=== PATIENT | male | born 1990 | race Caucasian/White ===

== ENCOUNTER → 2019-07-06 | Outpatient (CLI) | payer OTHER ==
--- NOTE | 2019-07-06 14:42 | RADIOLOGY REPORT (SQ) ---
EXAM DESCRIPTION: SKULL 1-3 VIEWS COMPLETED DATE/TIME: 07/06/2019 2:29 pm REASON FOR STUDY: SCREEN FOR MRI - COMPARISON: None. NUMBER OF VIEWS: Two Views. TECHNIQUE: Lay and lateral views of the skull were obtained. LIMITATIONS: None. FINDINGS: SKULL: There is no fracture. The orbits are intact. The sphenoid and maxillary sinuses a re aerated. There is no radiopaque foreign body. OTHER: No other finding. IMPRESSION: No radiopaque foreign body. TECHNICAL DOCUMENTATION: JOB ID: [id number] 2010 [employer]- All Rights Reserved Reading location - IP/workstation name: [email or web address]
--- NOTE | 2019-07-06 16:28 | RADIOLOGY REPORT (SQ) ---
EXAM DESCRIPTION: MRI LUMBAR SPINE WITHOUT COMPLETED DATE/TIME: 07/06/2019 3:03 pm REASON FOR STUDY: LOW BACK PAIN COMPARISON: None. TECHNIQUE: Sagittal and Axial imaging includes T1, T2, STIR and gradient echo sequences. Coronal T2/ HASTE imaging. LIMITATIONS: None. FINDINGS: VISUALIZED UPPER ABDOMEN: No abnormality. SEGMENTATION: There are 5 lumbar-type vertebral bodies. There is no transition anatomy at the lumbos acral junction. ALIGNMENT: Anatomic. VERTEBRAE: Intact. BONE MARROW: Normal. DISC SIGNAL: The L4-5 and L5-S1 intervertebral discs are desiccated. POSTERIOR ELEMENTS: Intact. HARDWARE: None in the spine. CORD AND CONUS: The conus medullaris terminates at the level of L1 and is normal in caliber and signa l intensity. SOFT TISSUES: No abnormality. L1-L2: No spinal or foraminal stenosis. L2-L3: No spinal or foraminal stenosis. L3-L4: No spinal or foraminal stenosis. L4-L5: Broad-based disc protrusion with an annular fissure that indents the ventral aspect of the the ila sac and abuts the intrathecal L5 nerve roots. There is no spinal or foraminal stenosis at the L4 -L5 level. L5-S1: Broad-based disc protrusion eccentric to the left with an annular fissure that abuts the intra thecal left S1 nerve root. There is no spinal or foraminal stenosis at the L5-S1 level. LOWER THORACIC: No stenosis. SACRUM: Visualized upper sacrum intact. OTHER: No other findings. IMPRESSION: 1. Broad-based disc protrusion with an annular fissure that indents the ventral aspect o f the thecal sac and abuts the intrathecal L5 nerve roots. 2. Broad-based disc protrusion eccentric to the left with an annular fissure that abuts the intrathec al left S1 nerve root. TECHNICAL DOCUMENTATION: JOB ID: [id number] 2010 [employer]- All Rights Reserved Reading location - IP/workstation name: [email or web address]
== END ==
LOC: RAD 14:07
PROVIDERS: ATTEND Physician Assistant Medical
DX: M51.26 Other intervertebral disc displacement, lumbar region (principal)
CPT/HCPCS: 70250; 72148